=== PATIENT | male | born 1985 | race Caucasian/White ===

== ENCOUNTER 2016-10-20 05:18 | Emergency (ER) | payer OTHER ==
[2016-10-20 05:48] LABS: BASOPHIL 0.3 % (0-2); EOSINOPHIL 1.1 % (0-5); HGB 14.4 g/dl (13.2-18.0); LYMPHOCYTE 32.9 % (15-48); MCH 30.3 pg (25.0-31.0); MCV 84.2 fL (78.0-100.0); MONOCYTE 6.5 % (0-12); MPV 9.9 fL (6.0-9.5); NEUTROPHIL 59.2 % (41-80); PLT 242 K/uL (150-400); RBC 4.75 M/uL (4.70-6.00); RDW 11.7 % (11.5-14.0); WBC 6.3 K/uL (4.0-10.5)
[2016-10-20 05:53] LABS: INR 1.05 (0.9-1.2); PROTHROMBIN TIME 12.8 SECONDS (11.4-13.2); PTT 24.5 SECONDS (24.3-32.1)
[2016-10-20 05:56] LABS: D-DIMER 0.34 ug/mLFEU (0.00-0.41)
[2016-10-20 05:59] LABS: ALBUMIN 4.3 g/dL (3.5-5.0); BILIRUBIN - TOTAL 0.4 mg/dL (0.1-1.0); CREATININE 0.9 mg/dL (0.7-1.2); GLOBULIN (CALCULATION) 3.3 g/dL (2.2-4.2); MAGNESIUM 1.9 mg/dL (1.40-2.10); POTASSIUM 3.9 mmol/L (3.5-5.1); TOTAL PROTEIN 7.6 g/dL (6.4-8.3)
[2016-10-20 06:02] LABS: MYOGLOBIN 34 ng/mL (26-65); PRO-BNP 24 pg/mL (0-125); TROPONIN T < 0.010 ng/mL
[2016-10-20 06:05] LABS: CKMB 5.22 ng/mL (0.97-4.94)
[2016-10-20 09:42] LABS: AMPHETAMINES NEGATIVE (NEGATIVE); BARBITURATES NEGATIVE (NEGATIVE); BENZODIAZEPINES NEGATIVE (NEGATIVE); COCAINE NEGATIVE (NEGATIVE); MARIJUANA (THC) NEGATIVE (NEGATIVE); METHADONE NEGATIVE (NEGATIVE); TRICYCLIC ANTIDEPRESSANT NEGATIVE (NEGATIVE)
== END 2016-10-20 09:41 | disposition home or self-care (01) ==
LOC: FER 05:18
PROVIDERS: Emergency Medicine
DX: R07.89 Other chest pain (principal); R06.02 Shortness of breath; R00.2 Palpitations; Z91.14 Patient's other noncompliance with medication regimen; Z82.49 Family history of ischemic heart disease and other diseases of the circulatory system
CPT/HCPCS: 36415; 71010; 80053; 80305; 82550; 82553; 83735; 83874; 83880; 84484; 85025; 85379; 85610; 85730; 93005; J2060

== ENCOUNTER 2020-05-28 00:09 | Emergency (ER) | payer OTHER ==
[~2020-05-28 00:09] MED LIST: MOTRIN600 MG PO; ROBAXIN500 MG PO
[2020-05-28] MEDS ORDERED: ONDANSETRON ODT4 MG SL (00:33)
[2020-05-28] MEDS ORDERED: BENTYL10 MG PO (00:33)
== END 2020-05-28 00:41 | disposition home or self-care (01) ==
LOC: FER 00:09
DX: A05.9 Bacterial foodborne intoxication, unspecified (principal)
CPT/HCPCS: 99283

== ENCOUNTER 2020-09-16 10:48 | Emergency (ER) | payer OTHER ==
[~2020-09-16 10:48] MED LIST changes: +BENTYL10 MG PO; +ONDANSETRON ODT4 MG SL
== END 2020-09-16 12:36 | disposition home or self-care (01) ==
LOC: FER 10:48
DX: U07.1 COVID-19 (principal)
CPT/HCPCS: 71045

== ENCOUNTER 2021-09-18 20:28 | Emergency (ER) | payer OTHER ==
[2021-09-18 21:16] LABS: BASOPHIL 0.6 % (0-2); EOSINOPHIL 0.9 % (0-5); HCT 43.7 % (42.0-52.0); HGB 15.1 g/dl (13.2-18.0); LYMPHOCYTE 19.3 % (15-48); MCH 31.3 pg (25.0-31.0); MCHC 34.6 g/dL (32.0-36.0); MCV 90.5 fL (78.0-100.0); MONOCYTE 6.4 % (0-12); MPV 9.6 fL (6.0-9.5); NEUTROPHIL 72.4 % (41-80); NRBC 0; PLT 201 K/uL (150-400); RBC 4.83 M/uL (4.70-6.00); RDW 11.6 % (11.5-14.0)
[2021-09-18 21:36] LABS: ALBUMIN 4.2 g/dL (3.4-5.0); BUN/CREAT RATIO (CALC) 18.2 RATIO; CREATININE 0.77 mg/dL (0.67-1.17); GLOBULIN (CALCULATION) 3.3 g/dL; POTASSIUM 3.5 mmol/L (3.5-5.1); TOTAL PROTEIN 7.5 g/dL (6.4-8.2)
[2021-09-18 22:14] LABS: BILIRUBIN NEGATIVE (NEGATIVE); BLOOD NEGATIVE Ery/uL (NEGATIVE); CLARITY CLEAR (CLEAR); COLOR YELLOW (YELLOW); GLUCOSE (U) NORMAL (NORMAL); LEUKOCYTES NEGATIVE Leu/uL (NEGATIVE); NITRITE NEGATIVE (NEGATIVE); PROTEIN NEGATIVE (NEGATIVE); UROBILINOGEN 0.2 mg/dL (0.2-1.0)
[2021-09-18 22:18] LABS: AMPHETAMINES NEGATIVE (NEGATIVE); BARBITURATES NEGATIVE (NEGATIVE); ECSTASY (MDMA) NEGATIVE (NEGATIVE); MARIJUANA (THC) NEGATIVE (NEGATIVE); METHADONE NEGATIVE (NEGATIVE); OPIATES NEGATIVE (NEGATIVE); OXYCODONE NEGATIVE (NEGATIVE)
== END 2021-09-18 22:52 | disposition home or self-care (01) ==
LOC: FER 20:28
PROVIDERS: Physician Assistant
DX: R51.9 Headache, unspecified (principal); G47.00 Insomnia, unspecified
CPT/HCPCS: 36415; 80053; 80305; 81003; 85025; J1885; J2765; J2930; J7030

== ENCOUNTER 2021-09-19 02:15 | Emergency (ER) | payer OTHER | END 2021-09-19 03:00 | disposition home or self-care (01) | LOC: FER 02:15 | DX: R61 Generalized hyperhidrosis (principal) | CPT/HCPCS: 99283 ==